=== PATIENT | male | born 1990 | race Caucasian/White ===

== ENCOUNTER 2023-05-23 20:21 | Emergency (ER) | payer OTHER ==
[2023-05-23] MEDS ORDERED: Diphtheria,Pertussis(Acell),Tetanus Vaccine 0.5 ML Syringe IM ONE (20:32)
== END 2023-05-23 21:00 | disposition home or self-care (01) ==
LOC: CC.ED 20:21
DX: S61.211A Laceration without foreign body of left index finger without damage to nail, initial encounter (principal); W23.0XXA Caught, crushed, jammed, or pinched between moving objects, initial encounter
CPT/HCPCS: 12001; 90471; 90715; 99282-25; 99283